=== PATIENT | female | born 1995 | race African-American/Black ===

== ENCOUNTER 2016-08-02 23:19 | Emergency (ER) | payer OTHER | END 2016-08-03 01:35 | disposition home or self-care (01) | LOC: D.ER 23:19 | DX: Z03.89 Encounter for observation for other suspected diseases and conditions ruled out (principal); V43.52XA Car driver injured in collision with other type car in traffic accident, initial encounter; Y93.89 Activity, other specified; Y92.410 Unspecified street and highway as the place of occurrence of the external cause ==

== ENCOUNTER → 2016-12-31 13:53 | Outpatient (CLI) | payer OTHER | END | disposition home or self-care (01) | LOC: D.CT 13:30 | DX: N92.6 Irregular menstruation, unspecified (principal); R10.84 Generalized abdominal pain ==

== ENCOUNTER 2017-01-03 19:33 | Emergency (ER) | payer OTHER ==
[2017-01-03 20:05] LABS: BASOPHILS 0.4 % (0-2); EOSINOPHILS 2.3 % (0-7); HEMATOCRIT 40.3 % (36.0-48.0); HEMOGLOBIN 13.2 g/dL (12-16); IMMATURE GRANULOCYTES 0.3 % (0-5); LYMPHOCYTES 23.3 % (15-50); MCH 28.4 pg (26.0-34.0); MCHC 32.8 g/dL (31.0-37.0); MCV 86.9 fL (80.0-100.0); MEAN PLATELET VOLUME 9.2 fL (7.4-10.4); MONOCYTES 7.8 % (2-11); NEUTROPHILS 65.9 % (40-80); PLATELET COUNT 448 10x3/uL (130-400); RBC 4.64 10x6/uL (4.00-5.40); RDW 14.8 % (11.5-14.5); WBC 13.2 10x3/uL (4.8-10.8)
[2017-01-03 20:16] LABS: HCG SERUM NEGATIVE (NEGATIVE)
[2017-01-03 20:37] LABS: APPEARANCE HAZY (CLEAR); BILIRUBIN NEGATIVE (NEGATIVE); COLOR YELLOW (YELLOW); GLUCOSE NEGATIVE (NEGATIVE); KETONE NEGATIVE (NEGATIVE); LEUKOCYTE ESTERASE TRACE (NEGATIVE); NITRITE NEGATIVE (NEGATIVE); PROTEIN NEGATIVE (NEGATIVE); UROBILINOGEN NORMAL (NORMAL)
[2017-01-03 20:45] LABS: BACTERIA FEW /hpf (NONE SEEN); EPITHELIAL CELLS 0-5 /hpf (0-5); MUCUS >1+ /lpf (NONE SEEN); WHITE CELLS - URINE OCC /hpf (0-5)
== END 2017-01-03 21:50 | disposition home or self-care (01) ==
LOC: D.ER 19:33
PROVIDERS: Emergency Medicine; Physician Assistant Medical
DX: N93.8 Other specified abnormal uterine and vaginal bleeding (principal); R10.9 Unspecified abdominal pain; M54.5 Low back pain; F41.9 Anxiety disorder, unspecified; F17.200 Nicotine dependence, unspecified, uncomplicated

== ENCOUNTER 2017-06-21 18:01 | Emergency (ER) | payer OTHER ==
[2017-06-21 19:38] LABS: APPEARANCE HAZY (CLEAR); BILIRUBIN NEGATIVE (NEGATIVE); COLOR YELLOW (YELLOW); GLUCOSE NEGATIVE (NEGATIVE); KETONE NEGATIVE (NEGATIVE); NITRITE NEGATIVE (NEGATIVE); PH 5.5 (5.0-6.0); PROTEIN NEGATIVE (NEGATIVE); SPECIFIC GRAVITY 1.015 (1.005-1.020); UROBILINOGEN NORMAL (NORMAL)
[2017-06-21 19:47] LABS: BASOPHILS 0.3 % (0-2); EOSINOPHILS 2.4 % (0-7); HEMATOCRIT 42.6 % (36.0-48.0); HEMOGLOBIN 13.9 g/dL (12-16); IMMATURE GRANULOCYTES 0.2 % (0-5); LYMPHOCYTES 28.7 % (15-50); MCH 28.4 pg (26.0-34.0); MCHC 32.6 g/dL (31.0-37.0); MCV 86.9 fL (80.0-100.0); MEAN PLATELET VOLUME 9.9 fL (7.4-10.4); MONOCYTES 7.1 % (2-11); NEUTROPHILS 61.3 % (40-80); PLATELET COUNT 467 10x3/uL (130-400); RDW 14.9 % (11.5-14.5); WBC 11.9 10x3/uL (4.8-10.8)
[2017-06-21 20:05] LABS: HCG SERUM NEGATIVE (NEGATIVE)
== END 2017-06-21 20:25 | disposition home or self-care (01) ==
LOC: D.ER 18:01
PROVIDERS: Family Medicine
DX: R10.32 Left lower quadrant pain (principal); N91.2 Amenorrhea, unspecified

== ENCOUNTER 2017-11-20 23:10 | Emergency (ER) | payer OTHER ==
[~2017-11-20] VITALS: Ht 177.8 cm; Wt 104.1 kg
[2017-11-20 23:14] VITALS: Ht 177.8 cm; Wt 104.1 kg
[2017-11-20] MEDS ORDERED: GLUCOPHAGE1000 MG PO (23:17)
[2017-11-20 23:40] LABS: BASOPHILS 0.4 % (0-2); EOSINOPHILS 2.8 % (0-7); HEMATOCRIT 39.8 % (36.0-48.0); HEMOGLOBIN 13.6 g/dL (12-16); IMMATURE GRANULOCYTES 0.2 % (0-5); LYMPHOCYTES 31.8 % (15-50); MCH 29.4 pg (26.0-34.0); MCHC 34.2 g/dL (31.0-37.0); MCV 86.1 fL (80.0-100.0); MEAN PLATELET VOLUME 9.9 fL (7.4-10.4); MONOCYTES 7.2 % (2-11); NEUTROPHILS 57.6 % (40-80); PLATELET COUNT 409 10x3/uL (130-400); RBC 4.62 10x6/uL (4.00-5.40); RDW 14.8 % (11.5-14.5); WBC 14.7 10x3/uL (4.8-10.8)
[2017-11-20 23:46] LABS: HCG SERUM NEGATIVE (NEGATIVE)
[2017-11-20 23:53] LABS: ALBUMIN 3.6 g/dL (3.4-5.0); ALKALINE PHOSPHATASE 68 U/L (46-116); ALT (SGPT) 21 U/L (10-68); CALC OSMOLALITY 275 mosm/kg (275-300); CARBON DIOXIDE 24.1 mmol/L (21.0-32.0); CHLORIDE - SERUM 104 mmol/L (98-107); CREATININE - SERUM 0.7 mg/dL (0.6-1.3); GLUCOSE 86 mg/dL (74-106); LIPASE 116 U/L (73-393); POTASSIUM - SERUM 3.9 mmol/L (3.5-5.1); PROTEIN - SERUM 7.4 g/dL (6.4-8.2); SODIUM 139 mmol/L (136-145); UREA NITROGEN 11 mg/dL (7-18); eGFR NON AFRICAN AMERICAN > 90 mL/min (90-120)
[2017-11-21 00:35] LABS: APPEARANCE HAZY (CLEAR); BACTERIA FEW /hpf (NONE SEEN); BILIRUBIN NEGATIVE (NEGATIVE); COLOR YELLOW (YELLOW); GLUCOSE NEGATIVE (NEGATIVE); KETONE SMALL mg/dL (NEGATIVE); NITRITE NEGATIVE (NEGATIVE); PROTEIN NEGATIVE (NEGATIVE); RED CELLS - URINE NONE SEEN /hpf (0-5); SPECIFIC GRAVITY 1.025 (1.005-1.020); UROBILINOGEN NORMAL (NORMAL); WHITE CELLS - URINE 0-5 /hpf (0-5)
[2017-11-21] MEDS ORDERED: MACROBID100 MG PO (03:34)
[2017-11-21 03:44] VITALS: BP 124/72
== END 2017-11-21 04:04 | disposition home or self-care (01) ==
LOC: D.ER 23:10
PROVIDERS: Family Medicine
DX: R10.30 Lower abdominal pain, unspecified (principal); N39.0 Urinary tract infection, site not specified; F17.200 Nicotine dependence, unspecified, uncomplicated

== ENCOUNTER 2018-06-14 20:43 | Emergency (ER) | payer SELFPAY ==
[~2018-06-14] VITALS: Ht 177.8 cm; Wt 113.9 kg
[~2018-06-14 20:43] MED LIST: GLUCOPHAGE1000 MG PO; MACROBID100 MG PO
[2018-06-14 20:45] VITALS: Ht 177.8 cm; Wt 113.9 kg
[2018-06-14] MEDS ORDERED: CLOMID (20:48)
[2018-06-14 21:31] LABS: BASOPHILS 0.4 % (0-2); EOSINOPHILS 2.5 % (0-7); HEMATOCRIT 39.3 % (36.0-48.0); HEMOGLOBIN 12.9 g/dL (12-16); IMMATURE GRANULOCYTES 0.3 % (0-5); LYMPHOCYTES 32.2 % (15-50); MCH 28.7 pg (26.0-34.0); MCHC 32.8 g/dL (31.0-37.0); MCV 87.3 fL (80.0-100.0); MEAN PLATELET VOLUME 9.6 fL (7.4-10.4); MONOCYTES 8.2 % (2-11); NEUTROPHILS 56.4 % (40-80); PLATELET COUNT 421 10x3/uL (130-400); RDW 14.9 % (11.5-14.5); WBC 12.2 10x3/uL (4.8-10.8)
[2018-06-14 21:49] LABS: HCG SERUM NEGATIVE (NEGATIVE)
[2018-06-14 21:50] LABS: ALBUMIN 3.2 g/dL (3.4-5.0); ALKALINE PHOSPHATASE 56 U/L (46-116); ALT (SGPT) 25 U/L (10-68); AMYLASE - SERUM 39 U/L (25-115); BILIRUBIN - TOTAL 0.11 mg/dL (0.2-1.3); CALC OSMOLALITY 278 mosm/kg (275-300); CALCIUM 8.5 mg/dL (8.5-10.1); CARBON DIOXIDE 24.8 mmol/L (21.0-32.0); CHLORIDE - SERUM 105 mmol/L (98-107); CREATININE - SERUM 0.7 mg/dL (0.6-1.3); GLUCOSE 89 mg/dL (74-106); LIPASE 114 U/L (73-393); POTASSIUM - SERUM 3.9 mmol/L (3.5-5.1); PROTEIN - SERUM 6.8 g/dL (6.4-8.2); SODIUM 141 mmol/L (136-145); UREA NITROGEN 11 mg/dL (7-18); eGFR NON AFRICAN AMERICAN > 90 mL/min (90-120)
[2018-06-14 21:52] LABS: APPEARANCE CLEAR (CLEAR); BILIRUBIN NEGATIVE (NEGATIVE); COLOR YELLOW (YELLOW); GLUCOSE NEGATIVE (NEGATIVE); KETONE NEGATIVE (NEGATIVE); NITRITE NEGATIVE (NEGATIVE); PROTEIN NEGATIVE (NEGATIVE); SPECIFIC GRAVITY 1.015 (1.005-1.020); UROBILINOGEN NORMAL (NORMAL)
[2018-06-14 21:53] LABS: BACTERIA FEW /hpf (NONE SEEN); EPITHELIAL CELLS 0-5 /hpf (0-5); WHITE CELLS - URINE OCC /hpf (0-5)
[2018-06-15] MEDS ORDERED: NAPROSYN500 MG PO (01:41)
[2018-06-15 01:48] VITALS: BP 128/70
[2018-06-28] MEDS ORDERED: HYDROCODON-ACE1 EAC7 PO (11:07)
[2018-06-28 11:13] VITALS: Ht 177.8 cm; Wt 113.9 kg
== END 2018-06-15 01:48 | disposition home or self-care (01) ==
LOC: D.ER 20:43
PROVIDERS: Family Medicine
DX: N83.201 Unspecified ovarian cyst, right side (principal); E11.9 Type 2 diabetes mellitus without complications; R11.2 Nausea with vomiting, unspecified; F17.200 Nicotine dependence, unspecified, uncomplicated

== ENCOUNTER 2018-06-22 19:29 | Emergency (ER) | payer SELFPAY ==
[~2018-06-22] VITALS: Ht 177.8 cm; Wt 102.3 kg
[~2018-06-22 19:29] MED LIST changes: +CLOMID; +NAPROSYN500 MG PO
[2018-06-22 19:54] VITALS: BP 140/66; Ht 177.8 cm; Wt 102.3 kg
[2018-06-22 21:06] LABS: BASOPHILS 0.3 % (0-2); EOSINOPHILS 1.5 % (0-7); HEMATOCRIT 38.7 % (36.0-48.0); HEMOGLOBIN 12.9 g/dL (12-16); IMMATURE GRANULOCYTES 0.2 % (0-5); LYMPHOCYTES 31.3 % (15-50); MCHC 33.3 g/dL (31.0-37.0); MEAN PLATELET VOLUME 9.8 fL (7.4-10.4); MONOCYTES 7.5 % (2-11); NEUTROPHILS 59.2 % (40-80); PLATELET COUNT 392 10x3/uL (130-400); RBC 4.45 10x6/uL (4.00-5.40); RDW 14.9 % (11.5-14.5); WBC 12.3 10x3/uL (4.8-10.8)
[2018-06-22 21:10] LABS: HCG URINE NEGATIVE (NEGATIVE)
[2018-06-22 21:24] LABS: APPEARANCE CLEAR (CLEAR); BILIRUBIN NEGATIVE (NEGATIVE); COLOR YELLOW (YELLOW); GLUCOSE NEGATIVE (NEGATIVE); KETONE NEGATIVE (NEGATIVE); NITRITE NEGATIVE (NEGATIVE); PROTEIN NEGATIVE (NEGATIVE); SPECIFIC GRAVITY 1.015 (1.005-1.020); UROBILINOGEN NORMAL (NORMAL)
[2018-06-22 21:24] LABS: ALBUMIN 3.3 g/dL (3.4-5.0); ALKALINE PHOSPHATASE 50 U/L (46-116); ALT (SGPT) 24 U/L (10-68); BILIRUBIN - TOTAL 0.12 mg/dL (0.2-1.3); CALC OSMOLALITY 283 mosm/kg (275-300); CALCIUM 8.5 mg/dL (8.5-10.1); CARBON DIOXIDE 26.1 mmol/L (21.0-32.0); CHLORIDE - SERUM 107 mmol/L (98-107); CREATININE - SERUM 0.7 mg/dL (0.6-1.3); GLUCOSE 97 mg/dL (74-106); POTASSIUM - SERUM 3.9 mmol/L (3.5-5.1); PROTEIN - SERUM 6.8 g/dL (6.4-8.2); SODIUM 143 mmol/L (136-145); UREA NITROGEN 11 mg/dL (7-18); eGFR NON AFRICAN AMERICAN > 90 mL/min (90-120)
[2018-06-22 21:26] LABS: BACTERIA FEW /hpf (NONE SEEN); EPITHELIAL CELLS 0-5 /hpf (0-5); WHITE CELLS - URINE 0-5 /hpf (0-5)
[2018-06-22 21:29] LABS: AMYLASE - SERUM 43 U/L (25-115); LIPASE 127 U/L (73-393); TROPONIN-I < 0.017 ng/mL (0.000-0.060)
[2018-06-23] MEDS ORDERED: ROBAXIN500 MG PO (00:47)
[2018-06-28] MEDS ORDERED: HYDROCODON-ACE1 EAC7 PO (11:07)
[2018-06-28 11:13] VITALS: Ht 177.8 cm; Wt 102.3 kg
== END 2018-06-23 01:32 | disposition home or self-care (01) ==
LOC: D.ER 19:29
PROVIDERS: Family Medicine
DX: N83.201 Unspecified ovarian cyst, right side (principal); F17.200 Nicotine dependence, unspecified, uncomplicated

== ENCOUNTER 2018-06-28 11:19 | Day surgery (SDC) | payer OTHER ==
[2018-06-25 13:09] LABS: BASOPHILS 0.5 % (0-2); EOSINOPHILS 2.4 % (0-7); HEMATOCRIT 40.6 % (36.0-48.0); HEMOGLOBIN 13.5 g/dL (12-16); IMMATURE GRANULOCYTES 0.3 % (0-5); MCH 29.2 pg (26.0-34.0); MCHC 33.3 g/dL (31.0-37.0); MCV 87.7 fL (80.0-100.0); MEAN PLATELET VOLUME 9.7 fL (7.4-10.4); MONOCYTES 7.9 % (2-11); NEUTROPHILS 61.9 % (40-80); PLATELET COUNT 389 10x3/uL (130-400); RBC 4.63 10x6/uL (4.00-5.40); RDW 14.7 % (11.5-14.5); WBC 10.7 10x3/uL (4.8-10.8)
[~2018-06-28] VITALS: Ht 157.5 cm; Wt 104.3 kg
[2018-06-28 11:13] VITALS: BP 108/46; Ht 157.5 cm; Wt 104.3 kg
[~2018-06-28 11:19] MED LIST changes: +HYDROCODON-ACE1 EAC7 PO; +ROBAXIN500 MG PO
[2018-06-28 11:30] LABS: HCG URINE NEGATIVE (NEGATIVE)
--- NOTE | 2018-06-28 16:40 | NUR ---
DC INSTRUCTIONS GIVEN TO PT/FAMILY. STATE UNDERSTANDING. DC'D IV CATH FULLY INTACT.
--- NOTE | 2018-06-28 16:47 | NUR ---
PT LEFT UNIT VIA WC AT 1641
--- NOTE | 2018-07-02 07:46 | OP ---
PATIENT NAME: IHSAN JONES MEDICAL RECORD: [id number] :95 LOCATION:D[facility] ADMISSION DATE: SURGEON: SAM GREER MD DATE OF OPERATION: 06/28/2018 PREOPERATIVE DIAGNOSES: 1. Subacute pelvic pain. 2. Ovarian mass. 3. History of infertility. 4. Polycystic ovarian syndrome. POSTOPERATIVE DIAGNOSES: 1. Subacute pelvic pain. 2. Ovarian mass. 3. History of infertility. 4. Polycystic ovarian syndrome. 5. Pelvic adhesive disease. PROCEDURES: 1. Diagnostic laparoscopy. 2. Lysis of adhesions. 3. Left ovarian cystectomy. 4. Chromopertubation. SURGEON: Sam Greer MD POTTERY DECORATOR: Nazario Benavides. ANESTHESIOLOGIST: Dr. Clements. ANESTHETIC: General anesthetic with endotracheal intubation. FINDINGS: Uterus is slightly enlarged and boggy. Mild to moderate adhesions were encountered in the cul-de-sac. Both ovaries have smooth capsules consistent within a polycystic ovarian syndrome. Left ovary is greater than right with approximately 4 cm cyst present. The cyst contained straw-colored fluid. At the time of chromopertubation, the right tube fills and spills, left tube is blocked. SPECIMENS REMOVED: Ovarian capsule with cyst wall. SPECIMEN DISPOSITION: Pathology. ESTIMATED BLOOD LOSS: Minimal. FLUIDS: 800 cc of lactated Ringer's. URINE OUTPUT: Quantity sufficient cath prior to this procedure. COMPLICATIONS: None. DRAINS: None. INDICATIONS: The patient is a 23-year-old female who has previously been diagnosed with polycystic ovarian syndrome and is on metformin. The patient is OPERATIVE REPORT [id number] IHSAN JONES having increasing pelvic pain and on evaluation found to have a pelvic mass. The patient has consented for diagnostic laparoscopy, removal of mass, and any indicated procedure. DESCRIPTION OF PROCEDURE: After informed consent was assured, the patient was taken to the operating room where anesthetic was obtained. The patient was frog legged. Bladder was drained and vaginal prep was performed. Speculum was introduced and an acorn manipulator placed. After placement of the single-tooth tenaculum and the acorn patient's abdomen was draped. An incision was made at the umbilicus to accommodate a 5-mm trocar. The trocar was inserted. Pneumoperitoneum was developed. An accessory port was now placed in the right lower quadrant and midline. The midline port is a 12-mm port. Right lower quadrant port is 5-mm port. A blunt probe was inserted through the right side and with the patient in steep Trendelenburg position, the bowel swept free of the pelvis with the above findings. A Bovie hook with a monopolar setting of 20 peterson was inserted and the adhesions taken down the cul-de-sac. The pelvis was irrigated and irrigant removed. Attention was directed to the left ovary where the cyst wall and thick capsule is now incised with Bovie cautery. A segment of this wall and capsule is removed and sent to pathology for study. After the cyst was drained, the pelvis again was irrigated. Chromopertubation was now performed and with using a 60 cc syringes, two syringes of methylene blue mixed with normal saline was injected with the right tube quickly filling and spilling and the left tube not filling or spilling. The patient has tolerated these procedures well. The laparoscopy was discontinued and pneumoperitoneum released. The accessory ports were removed and the primary port removed. The acorn manipulator and single tooth were removed. The sponge, lap, and needle counts correct times 2. The patient was awakened and went to the recovery area. TRANSINT:[id number] Voice Confirmation ID: [id number] DOCUMENT ID: [id number] SAM GREER MD at 0746 CC: [id number] DICTATION DATE: 06/28/18 1456 VICE PRESIDENT FIXED INCOME: 06/28/182128 [facility] 06/28/[address] [address]
== END 2018-06-28 16:45 | disposition home or self-care (01) ==
LOC: D.OPS 11:19 → D.PAN 12:30 → D.OPS 16:45
PROVIDERS: Obstetrics & Gynecology
DX: N85.2 Hypertrophy of uterus (principal); E28.2 Polycystic ovarian syndrome; N97.1 Female infertility of tubal origin; N73.6 Female pelvic peritoneal adhesions (postinfective); Z01.812 Encounter for preprocedural laboratory examination

== ENCOUNTER 2018-08-18 01:21 | Emergency (ER) | payer OTHER ==
[~2018-08-18] VITALS: Ht 157.5 cm; Wt 97.7 kg
[2018-08-18 01:28] VITALS: Ht 157.5 cm; Wt 97.7 kg
[2018-08-18 02:04] LABS: BASOPHILS 0.4 % (0-2); EOSINOPHILS 2.4 % (0-7); HEMATOCRIT 38.2 % (36.0-48.0); HEMOGLOBIN 12.6 g/dL (12-16); IMMATURE GRANULOCYTES 0.3 % (0-5); LYMPHOCYTES 32.9 % (15-50); MCH 28.6 pg (26.0-34.0); MCV 86.6 fL (80.0-100.0); MEAN PLATELET VOLUME 9.7 fL (7.4-10.4); MONOCYTES 8.2 % (2-11); NEUTROPHILS 55.8 % (40-80); PLATELET COUNT 420 10x3/uL (130-400); RBC 4.41 10x6/uL (4.00-5.40); RDW 13.9 % (11.5-14.5); WBC 11.9 10x3/uL (4.8-10.8)
[2018-08-18 02:17] LABS: ALBUMIN 3.3 g/dL (3.4-5.0); ALKALINE PHOSPHATASE 68 U/L (46-116); ALT (SGPT) 23 U/L (10-68); CALC OSMOLALITY 279 mosm/kg (275-300); CALCIUM 8.5 mg/dL (8.5-10.1); CARBON DIOXIDE 30.1 mmol/L (21.0-32.0); CHLORIDE - SERUM 105 mmol/L (98-107); CREATININE - SERUM 0.6 mg/dL (0.6-1.3); GLUCOSE 96 mg/dL (74-106); POTASSIUM - SERUM 3.9 mmol/L (3.5-5.1); PROTEIN - SERUM 6.8 g/dL (6.4-8.2); SODIUM 141 mmol/L (136-145); UREA NITROGEN 9 mg/dL (7-18); eGFR NON AFRICAN AMERICAN > 90 mL/min (90-120)
[2018-08-18 02:18] LABS: BILIRUBIN - TOTAL 0.07 mg/dL (0.2-1.3)
[2018-08-18 02:20] LABS: APPEARANCE CLEAR (CLEAR); COLOR YELLOW (YELLOW)
[2018-08-18 02:21] LABS: BILIRUBIN NEGATIVE (NEGATIVE); GLUCOSE NEGATIVE (NEGATIVE); HCG URINE NEGATIVE (NEGATIVE); KETONE NEGATIVE (NEGATIVE); NITRITE NEGATIVE (NEGATIVE); PROTEIN NEGATIVE (NEGATIVE); UROBILINOGEN NORMAL (NORMAL)
[2018-08-18 02:24] LABS: HCG - QUANTITATIVE (MATERNAL) 0 mIU/mL
[2018-08-18] MEDS ORDERED: HYDROCODON-ACE1 EA10 PO (02:51)
[2018-08-18 02:56] VITALS: BP 135/68
== END 2018-08-18 03:02 | disposition home or self-care (01) ==
LOC: D.ER 01:21
PROVIDERS: Family Medicine
DX: N83.209 Unspecified ovarian cyst, unspecified side (principal)

== ENCOUNTER 2018-08-21 23:02 | Emergency (ER) | payer OTHER ==
[~2018-08-21] VITALS: Ht 157.5 cm; Wt 97.5 kg
[~2018-08-21 23:02] MED LIST changes: +HYDROCODON-ACE1 EA10 PO
[2018-08-21 23:06] VITALS: BP 125/83; Ht 157.5 cm; Wt 97.5 kg
[2018-08-21 23:26] LABS: BASOPHILS 0.4 % (0-2); EOSINOPHILS 2.3 % (0-7); HEMATOCRIT 40.9 % (36.0-48.0); HEMOGLOBIN 13.7 g/dL (12-16); IMMATURE GRANULOCYTES 0.4 % (0-5); LYMPHOCYTES 28.5 % (15-50); MCHC 33.5 g/dL (31.0-37.0); MCV 86.5 fL (80.0-100.0); MEAN PLATELET VOLUME 10.2 fL (7.4-10.4); MONOCYTES 8.2 % (2-11); NEUTROPHILS 60.2 % (40-80); PLATELET COUNT 465 10x3/uL (130-400); RBC 4.73 10x6/uL (4.00-5.40); RDW 13.9 % (11.5-14.5); WBC 14.2 10x3/uL (4.8-10.8)
[2018-08-21 23:32] LABS: APPEARANCE CLEAR (CLEAR); BILIRUBIN NEGATIVE (NEGATIVE); COLOR YELLOW (YELLOW); GLUCOSE NEGATIVE (NEGATIVE); HCG URINE NEGATIVE (NEGATIVE); KETONE NEGATIVE (NEGATIVE); NITRITE NEGATIVE (NEGATIVE); PROTEIN NEGATIVE (NEGATIVE); SPECIFIC GRAVITY 1.015 (1.005-1.020); UROBILINOGEN NORMAL (NORMAL)
[2018-08-21 23:39] LABS: ALBUMIN 3.6 g/dL (3.4-5.0); ALKALINE PHOSPHATASE 74 U/L (46-116); ALT (SGPT) 26 U/L (10-68); AMYLASE - SERUM 40 U/L (25-115); BILIRUBIN - TOTAL 0.16 mg/dL (0.2-1.3); CALC OSMOLALITY 277 mosm/kg (275-300); CALCIUM 8.5 mg/dL (8.5-10.1); CHLORIDE - SERUM 105 mmol/L (98-107); CREATININE - SERUM 0.7 mg/dL (0.6-1.3); GLUCOSE 95 mg/dL (74-106); LIPASE 129 U/L (73-393); POTASSIUM - SERUM 4.3 mmol/L (3.5-5.1); PROTEIN - SERUM 7.3 g/dL (6.4-8.2); SODIUM 140 mmol/L (136-145); UREA NITROGEN 10 mg/dL (7-18); eGFR NON AFRICAN AMERICAN > 90 mL/min (90-120)
[2018-08-21] MEDS ORDERED: TYLENOL W/CODEI1 TAB PO (23:39)
== END 2018-08-21 23:55 | disposition home or self-care (01) ==
LOC: D.ER 23:02
PROVIDERS: Emergency Medicine
DX: R10.2 Pelvic and perineal pain (principal)

== ENCOUNTER 2019-04-11 18:32 | Emergency (ER) | payer OTHER ==
[~2019-04-11] VITALS: Ht 157.5 cm; Wt 102.3 kg
[~2019-04-11 18:32] MED LIST changes: +TYLENOL W/CODEI1 TAB PO
[2019-04-11 18:51] VITALS: BP 130/87; Ht 157.5 cm; Wt 102.3 kg
[2019-04-11 19:21] LABS: APPEARANCE CLEAR (CLEAR); BILIRUBIN NEGATIVE (NEGATIVE); COLOR YELLOW (YELLOW); GLUCOSE NEGATIVE (NEGATIVE); KETONE NEGATIVE (NEGATIVE); NITRITE NEGATIVE (NEGATIVE); PROTEIN NEGATIVE (NEGATIVE); UROBILINOGEN NORMAL (NORMAL)
[2019-04-11 19:24] LABS: BACTERIA FEW /hpf (NEGATIVE); EPITHELIAL CELLS 0-5 /hpf (0-5); RED CELLS - URINE OCC /hpf (0-5); WHITE CELLS - URINE 0-5 /hpf (NEGATIVE)
[2019-04-11 19:32] LABS: BASOPHILS 0.4 % (0-2); EOSINOPHILS 1.8 % (0-7); HEMATOCRIT 41.2 % (36.0-48.0); HEMOGLOBIN 13.4 g/dL (12-16); IMMATURE GRANULOCYTES 0.2 % (0-5); LYMPHOCYTES 31.8 % (15-50); MCH 28.6 pg (26.0-34.0); MCHC 32.5 g/dL (31.0-37.0); MEAN PLATELET VOLUME 9.8 fL (7.4-10.4); MONOCYTES 9.3 % (2-11); NEUTROPHILS 56.5 % (40-80); PLATELET COUNT 517 10x3/uL (130-400); RBC 4.68 10x6/uL (4.00-5.40); RDW 14.8 % (11.5-14.5); WBC 11.6 10x3/uL (4.8-10.8)
[2019-04-11 19:50] LABS: CALC OSMOLALITY 282 mosm/kg (275-300); CALCIUM 8.9 mg/dL (8.5-10.1); CARBON DIOXIDE 27.2 mmol/L (21.0-32.0); CHLORIDE - SERUM 105 mmol/L (98-107); CREATININE - SERUM 0.7 mg/dL (0.6-1.3); GLUCOSE 80 mg/dL (74-106); POTASSIUM - SERUM 4.3 mmol/L (3.5-5.1); SODIUM 143 mmol/L (136-145); UREA NITROGEN 10 mg/dL (7-18); eGFR NON AFRICAN AMERICAN > 90 mL/min (90-120)
[2019-04-11 19:51] LABS: HCG SERUM NEGATIVE (NEGATIVE)
[2019-04-11 19:56] LABS: ALBUMIN 3.7 g/dL (3.4-5.0); ALKALINE PHOSPHATASE 92 U/L (46-116); ALT (SGPT) 32 U/L (10-68); AMYLASE - SERUM 46 U/L (25-115); BILIRUBIN - TOTAL 0.19 mg/dL (0.2-1.3); LIPASE 130 U/L (73-393); PROTEIN - SERUM 7.4 g/dL (6.4-8.2)
[2019-04-11] MEDS ORDERED: HYDROCODON-ACE1 EAC7 PO (22:55)
[2019-04-11] MEDS ORDERED: AVIDOXY100 MG PO (23:18)
[2019-04-14 16:08] LABS: CHLAMYDIA TRACHOMATIS, NAA Negative (Negative)
== END 2019-04-11 22:32 | disposition home or self-care (01) ==
LOC: D.ER 18:32
PROVIDERS: Emergency Medicine
DX: N80.9 Endometriosis, unspecified (principal); R10.9 Unspecified abdominal pain; M54.9 Dorsalgia, unspecified

== ENCOUNTER 2019-12-31 03:01 | Emergency (ER) | payer OTHER ==
[~2019-12-31] VITALS: Ht 157.5 cm; Wt 104.3 kg
[~2019-12-31 03:01] MED LIST changes: +AVIDOXY100 MG PO
[2019-12-31 03:09] VITALS: Ht 157.5 cm; Wt 104.3 kg
[2019-12-31 03:27] LABS: BASOPHILS 0.4 % (0-2); EOSINOPHILS 2.9 % (0-7); HEMATOCRIT 40.4 % (36.0-48.0); HEMOGLOBIN 13.3 g/dL (12-16); IMMATURE GRANULOCYTES 0.2 % (0-5); LYMPHOCYTES 34.1 % (15-50); MCH 28.7 pg (26.0-34.0); MCHC 32.9 g/dL (31.0-37.0); MCV 87.1 fL (80.0-100.0); MEAN PLATELET VOLUME 9.6 fL (7.4-10.4); MONOCYTES 9.2 % (2-11); NEUTROPHILS 53.2 % (40-80); PLATELET COUNT 443 10x3/uL (130-400); RBC 4.64 10x6/uL (4.00-5.40); RDW 15.5 % (11.5-14.5); WBC 15.6 10x3/uL (4.8-10.8)
[2019-12-31 03:34] LABS: CALC OSMOLALITY 281 mosm/kg (275-300); CALCIUM 9.1 mg/dL (8.5-10.1); CARBON DIOXIDE 28.5 mmol/L (21.0-32.0); CHLORIDE - SERUM 107 mmol/L (98-107); CREATININE - SERUM 0.7 mg/dL (0.6-1.3); GLUCOSE 93 mg/dL (74-106); POTASSIUM - SERUM 4.6 mmol/L (3.5-5.1); SODIUM 142 mmol/L (136-145); UREA NITROGEN 11 mg/dL (7-18); eGFR NON AFRICAN AMERICAN > 90 mL/min (90-120)
[2019-12-31 03:38] LABS: HCG URINE NEGATIVE (NEGATIVE)
[2019-12-31 03:39] LABS: BILIRUBIN NEGATIVE (NEGATIVE); EPITHELIAL CELLS 0-5 /hpf (0-5); GLUCOSE NEGATIVE (NEGATIVE); KETONE NEGATIVE (NEGATIVE); NITRITE NEGATIVE (NEGATIVE); UROBILINOGEN NORMAL (NORMAL)
[2019-12-31 03:39] LABS: ALBUMIN 3.7 g/dL (3.4-5.0); ALKALINE PHOSPHATASE 76 U/L (30-120); ALT (SGPT) 25 U/L (10-68); BILIRUBIN - TOTAL 0.08 mg/dL (0.2-1.3); C-REACTIVE PROTEIN 2.8 mg/dL (0.0-0.9); LIPASE 119 U/L (73-393); PROTEIN - SERUM 7.4 g/dL (6.4-8.2)
[2019-12-31] MEDS ORDERED: HYDROCODON-ACE1 EAC7 PO (06:15)
[2019-12-31] MEDS ORDERED: ZOFRAN ODT4 MG/UDTAB PO (06:15)
[2019-12-31 06:35] VITALS: BP 139/97
== END 2019-12-31 06:36 | disposition home or self-care (01) ==
LOC: D.ER 03:01
PROVIDERS: Family Medicine
DX: N83.202 Unspecified ovarian cyst, left side (principal); R10.32 Left lower quadrant pain; R11.2 Nausea with vomiting, unspecified

== ENCOUNTER 2020-02-20 18:07 | Emergency (ER) | payer OTHER ==
[~2020-02-20] VITALS: Ht 157.5 cm; Wt 97.7 kg
[~2020-02-20 18:07] MED LIST changes: +ZOFRAN ODT4 MG/UDTAB PO
[2020-02-20 18:10] VITALS: Ht 157.5 cm; Wt 97.7 kg
[2020-02-20 19:41] LABS: BASOPHILS 0.4 % (0-2); EOSINOPHILS 2.6 % (0-7); HEMATOCRIT 40.9 % (36.0-48.0); HEMOGLOBIN 13.1 g/dL (12-16); IMMATURE GRANULOCYTES 0.2 % (0-5); MCH 28.1 pg (26.0-34.0); MCV 87.6 fL (80.0-100.0); MEAN PLATELET VOLUME 9.6 fL (7.4-10.4); NEUTROPHILS 60.8 % (40-80); PLATELET COUNT 483 10x3/uL (130-400); RBC 4.67 10x6/uL (4.00-5.40); WBC 12.1 10x3/uL (4.8-10.8)
[2020-02-20 19:46] LABS: CALC OSMOLALITY 272 mosm/kg (275-300); CALCIUM 8.7 mg/dL (8.5-10.1); CARBON DIOXIDE 29.8 mmol/L (21.0-32.0); CHLORIDE - SERUM 103 mmol/L (98-107); CREATININE - SERUM 0.9 mg/dL (0.6-1.3); GLUCOSE 87 mg/dL (74-106); POTASSIUM - SERUM 3.8 mmol/L (3.5-5.1); SODIUM 138 mmol/L (136-145); UREA NITROGEN 6 mg/dL (7-18); eGFR NON AFRICAN AMERICAN 81 mL/min (90-120)
[2020-02-20 19:55] LABS: ALBUMIN 3.4 g/dL (3.4-5.0); ALKALINE PHOSPHATASE 86 U/L (30-120); ALT (SGPT) 26 U/L (10-68); AMYLASE - SERUM 35 U/L (25-115); BILIRUBIN - TOTAL 0.11 mg/dL (0.2-1.3); LIPASE 98 U/L (73-393); PROTEIN - SERUM 7.2 g/dL (6.4-8.2); TROPONIN-I < 0.017 ng/mL (0.000-0.060)
[2020-02-20 19:57] LABS: BILIRUBIN NEGATIVE (NEGATIVE); KETONE NEGATIVE (NEGATIVE); NITRITE NEGATIVE (NEGATIVE); UROBILINOGEN NORMAL mg/dL (< 2)
[2020-02-20 19:58] LABS: BACTERIA MODERATE HPF (NONE SEEN); WHITE CELLS - URINE 0-5 HPF (0-4); YEAST <1+ /hpf (NONE SEEN)
[2020-02-20 20:06] LABS: HCG URINE NEGATIVE (NEGATIVE)
[2020-02-20] MEDS ORDERED: ZOFRAN ODT4 MG/UDTAB PO (21:40)
[2020-02-20] MEDS ORDERED: MACROBID100 MG PO (21:40)
[2020-02-20 22:30] VITALS: BP 145/69
== END 2020-02-20 22:12 | disposition home or self-care (01) ==
LOC: D.ER 18:07
PROVIDERS: Family Medicine
DX: N39.0 Urinary tract infection, site not specified (principal); B37.9 Candidiasis, unspecified